=== PATIENT | male | born 1965 | race African-American/Black ===

== ENCOUNTER 2020-12-05 19:27 | Emergency (ER) | payer MEDICAID, OTHER ==
[~2020-12-05] VITALS: Ht 172.7 cm; Wt 75.3 kg
[2020-12-05] MEDS ORDERED: SODIUM CHLORIDE 0.9% 1,000 ML IV ONE (20:15)
[2020-12-05] MEDS ORDERED: HALOPERIDOL LACTATE 5MG/ML VIAL IM STA (21:17)
[2020-12-05] MEDS ORDERED: LORAZEPAM 2MG/ML CPJ IM STA (21:17)
[2020-12-05 21:29] LABS: BASOPHILS % 0.5 % (0.0-2.0); EOSINOPHILS % 1.5 % (0.0-5.0); HEMATOCRIT. 39.5 % (42.0-52.0); HEMOGLOBIN. 12.9 g/dL (14.0-18.0); LYMPHOCYTES % 19.2 % (20.0-50.0); MEAN CORPUSCULAR HEMOGLOBIN 30.9 pg (28.0-32.0); MEAN CORPUSCULAR VOLUME 94.7 fL (80.0-94.0); MEAN PLATELET VOLUME 6.6 fl (7.4-10.4); MONOCYTES % 6.7 % (2.0-8.0); NEUTROPHILS % 72.1 % (40.0-76.0); PLATELET 346 x1000/uL (130-400); RED BLOOD CELL COUNT 4.18 mill/uL (4.7-6.1); RED CELL DISTRIBUTION WIDTH 14.3 % (11.6-14.6)
[2020-12-05 21:35] LABS: CHLORIDE 108 mEq/L (98-107)
[2020-12-05 21:40] LABS: ETHANOL BLOOD 207 mg/dL
[2020-12-05 21:43] LABS: CREATINE KINASE 265 IU/L (39-308)
[2020-12-05 21:44] LABS: PROTHROMBIN TIME 10.9 sec (9.6-11.0)
[2020-12-06 00:27] LABS: CLARITY URINE CLEAR (CLEAR); COLOR URINE YELLOW (YELLOW); KETONES URINE NEGATIVE (NEGATIVE); LEUKOCYTE ESTERASE URINE NEGATIVE (NEGATIVE); NITRITE URINE NEGATIVE (NEGATIVE); OCCULT BLOOD URINE NEGATIVE (NEGATIVE); PROTEIN URINE NEGATIVE (NEGATIVE); SPECIFIC GRAVITY URINE 1.009 (1.005-1.030); UROBILINOGEN URINE 0.2 E.U./dL (0.2-1.0)
[2020-12-06 01:23] LABS: *AMPHETAMINES SCREEN URINE NEGATIVE (NEGATIVE); *BARBITURATES SCREEN URINE NEGATIVE (NEGATIVE); *BENZODIAZEPINES SCREEN URINE PRESUMTIVE POSITIVE (NEGATIVE); *COCAINE SCREEN URINE NEGATIVE (NEGATIVE)
[2020-12-06 01:24] LABS: CANNABINOID URINE SCREEN PRESUMTIVE POSITIVE (NEGATIVE); METHADONE URINE SCREEN NEGATIVE (NEGATIVE); OPIATES URINE SCREEN NEGATIVE (NEGATIVE); PHENCYCLIDINE URINE SCREEN NEGATIVE (NEGATIVE)
[2020-12-06 06:23] VITALS: BP 144/76
== END 2020-12-06 07:14 | disposition home or self-care (01) ==
LOC: ER 19:27
DX: R41.82 Altered mental status, unspecified (principal); R45.1 Restlessness and agitation; F10.129 Alcohol abuse with intoxication, unspecified; Y90.0 Blood alcohol level of less than 20 mg/100 ml
CPT/HCPCS: 36415; 70450; 71045; 80053; 80305; 80307; 80320; 80329; 81003; 82140; 82550; 83605; 83690; 84443; 84484; 85025; 85610; 86850; 86900; 86901; 96360; 96361; 96372; 99285; J1630; J2060; J7030; G0480